=== PATIENT | male | born 1975 | race Caucasian/White ===

== ENCOUNTER → 2016-10-19 | Outpatient (CLI) | payer OTHER ==
--- NOTE | 2016-10-19 16:24 | CPEKG ---
Heart Rate: 75 RR Interval: 800 P-R Interval: 176 QRSD Interval: 116 QT Interval: 404 QTC Interval: 452 P [place]: 73 QRS [place]: 64 T Wave [place]: 68 EKG Severity - BORDERLINE ECG - EKG Impression: SINUS RHYTHM EKG Impression: NONSPECIFIC INTRAVENTRICULAR CONDUCTION DELAY Electronically Signed By: Federico Jose 20-Oct-2016 07:43:25
== END ==
LOC: FCP 16:11
PROVIDERS: ATTEND Internal Medicine
DX: Z79.899 Other long term (current) drug therapy (principal)